=== PATIENT | female | born 1930 | race Caucasian/White ===

== ENCOUNTER 2016-04-06 14:54 | Outpatient (RCR) | payer MEDICARE, OTHER ==
[~2016-04-06 14:54] MED LIST: AC500T PO; C250T PO; DIGO125T PO; FAMO20TA5 PO; FERR-57 PO; LRT10T PO; MAGN-47 PO; MAGN400T6 PO; MMT17NA NS; MULT1CAP27 PO; ZINC100T3 PO
== END 2016-04-06 16:00 | disposition home or self-care (01) ==
LOC: WOUNDCARE 14:54
PROVIDERS: ATTEND Surgery
DX: L89.152 Pressure ulcer of sacral region, stage 2 (principal); F03.90 Unspecified dementia, unspecified severity, without behavioral disturbance, psychotic disturbance, mood disturbance, and anxiety; E43 Unspecified severe protein-calorie malnutrition
CPT/HCPCS: 11042; 99212; 99213